=== PATIENT | male | born 2000 | race Hispanic/Latino ===

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

== ENCOUNTER 2025-04-08 08:25 | Emergency (ER) | payer OTHER ==
[2025-04-08 09:13] LABS: Bacteria/HPF None Seen HPF (None Seen); CAUTI Indications for Culture Pelvic or flank pain; Glucose, Urine (Dipstick) Normal (Negative); Leukocyte Negative Leu/uL (Negative); Protein, Urine (Dipstick) Negative (Neg-Trace); RBC/HPF 0-3 HPF (0-3); Specific Gravity, Urine 1.024 (1.002-1.036); WBC/HPF 0-3 HPF (0-3)
[2025-04-08 09:20] LABS: Urine Culture Reflex No No
== END 2025-04-08 09:52 | disposition home or self-care (01) ==
LOC: ERS 08:25
DX: S39.94XA Unspecified injury of external genitals, initial encounter (principal); N43.3 Hydrocele, unspecified; Y04.2XXA Assault by strike against or bumped into by another person, initial encounter; Y92.149 Unspecified place in prison as the place of occurrence of the external cause
CPT/HCPCS: 76870; 81001; 93976; 96372; 99284